=== PATIENT | female | born 1950 | race American Indian/Alaskan Native ===

== ENCOUNTER 2016-10-18 15:44 | Emergency (ER) | payer SELFPAY ==
[2016-10-18 15:54] VITALS: BMI 27.6
[2016-10-18] MEDS ORDERED: Sodium Chloride 0.9% 1,000 ML IV STA (16:03)
[2016-10-18 16:46] LABS: BASO # 0.01 K/mm3 (0.0-2.0); BASO % 0.2 % (0.0-3.0); EOS # 0.1 (0.0-0.7); EOS % 1.5 % (1.5-5.0); GRAN # 2.65 (1.4-6.5); GRAN % 40.4 % (50.0-68.0); HEMOGLOBIN 12.8 gm/dL (12.0-16.0); LYMPH # 3.2 (1.2-3.4); LYMPH % 48.9 % (22.0-35.0); MEAN CELL VOLUME 85.5 fL (80.0-105.0); MEAN CORPUSCULAR HEMOGLOBIN 28.6 pg (25.0-35.0); MEAN CORPUSCULAR HGB CONC 33.4 g/dl (31.0-37.0); MEAN PLATELET VOLUME 11.1 fl (7.0-11.0); MONO # 0.6 (0.1-0.6); PLATELET COUNT 201 10^3/uL (120.0-450.0); RBC 4.48 10^6/uL (3.5-6.1); WHITE BLOOD COUNT 6.6 10^3/ul (4.5-11.0)
[2016-10-18 17:06] LABS: ALB/GLOB RATIO 1.2 (1.1-1.8); ALBUMIN 4.3 g/dL (3.0-4.8); ALT/SGPT 45 U/L (7-56); AST/SGOT 37 U/L (15-39); BLOOD UREA NITROGEN 15 mg/dL (7-21); CALCIUM 9.2 mg/dL (8.4-10.5); GFR AFRICAN-AMERICAN > 60; GFR NON-AFRICAN AMERICAN 56; LIPASE 141 U/L (23-300)
[2016-10-18 17:46] LABS: URINE BILIRUBIN NEGATIVE (NEGATIVE); URINE BLOOD SMALL (NEGATIVE); URINE GLUCOSE (UA) NEGATIVE (NEGATIVE); URINE LEUKOCYTE ESTERASE TRACE Leu/uL (NEGATIVE); URINE NITRATE NEGATIVE (NEGATIVE); URINE PROTEIN NEGATIVE mg/dL (<30 mg/dL); URINE UROBILINOGEN 0.2 E.U./dL (<1 E.U./dL)
[2016-10-18 17:47] LABS: URINE APPEARANCE CLEAR (CLEAR); URINE COLOR YELLOW (YELLOW)
[2016-10-18] MEDS ORDERED: Iohexol 240 (50 ml) ONE (17:47)
[2016-10-18 17:56] LABS: URINE BACTERIA TRACE (NEG); URINE RBC 0 - 2 /hpf (0-2)
[2016-10-18 18:39] VITALS: TEMP 98.6
--- NOTE | 2016-10-18 19:05 | ED PDOC ---
Arrival/HPI - General Chief Complaint: Abdominal Pain Time Seen by Provider: 10/18/16 16:03 Historian: Patient - History of Present Illness Narrative History of Present Illness (Text): 10/18/16 19:08 A 66 year old female, whose past medical history includes peptic ulcer disease, presents to the emergency department complaining of abdominal pain increasing for the past 4 days. Patient notes one episode of vomiting yesterday. Also noticed two episodes of minimal streaked blood in stool. Patient took typical over the counter medication with no relief. Recently returned from [place] 4 months ago. Denies any nausea, dysuria, chest pain, shortness of breath, fever, diarrhea, constipation or any other complaints at this time. Time/Duration: Other (4 days) Symptom Onset: Sudden Symptom Course: Unchanged Activities at Onset: Rest Context: Home Past Medical History - Provider Review Nursing Documentation Reviewed: Yes - Infectious Disease Hx of Infectious Diseases: None - Hematological/Oncological Hx Blood Disorders: Yes Hx Hepatitis A: Yes - Gastrointestinal Hx Gastrointestinal Disorders: Yes Hx Gastritis: Yes - Psychiatric Hx Substance Use: No - Anesthesia Hx Anesthesia: No Hx Anesthesia Reactions: No Family/Social History - Physician Review Nursing Documentation Reviewed: Yes Family/Social History: No Known Family HX Smoking Status: Never Smoked Hx Alcohol Use: No Hx Substance Use: No Allergies/Home Meds Allergies/Adverse Reactions: Allergies No Known Allergies Allergy (Verified 10/18/16 15:54) Review of Systems - Physician Review All systems were reviewed & negative as marked: Yes - Review of Systems Constitutional: absent: Fevers Respiratory: absent: SOB Cardiovascular: absent: Chest Pain Gastrointestinal: Abdominal Pain, Vomiting, Hematochezia. absent: Constipation , Diarrhea, Nausea Genitourinary Female: absent: Dysuria Physical Exam Vital Signs Reviewed: Yes Vital Signs Temp Pulse Resp BP Pulse Ox 10/18/16 22:50 79 14 150/92 H 97 10/18/16 18:38 98.6 F 80 20 168/88 H 99 10/18/16 17:00 82 18 180/89 H 98 10/18/16 15:56 97.8 F 97 H 19 170/96 H 98 Temperature: Afebrile Blood Pressure: Hypertensive Pulse: Regular Respiratory Rate: Normal Appearance: Positive for: Well-Appearing, Non-Toxic, Comfortable Pain Distress: None Mental Status: Positive for: Alert and Oriented X 3 - Systems Exam Head: Present: Atraumatic, Normocephalic Pupils: Present: PERRL Extroacular Muscles: Present: EOMI Conjunctiva: Present: Normal Mouth: Present: Moist Mucous Membranes Neck: Present: Normal Range of Motion Respiratory/Chest: Present: Clear to Auscultation, Good Air Exchange. No: Respiratory Distress, Accessory Muscle Use Cardiovascular: Present: Regular Rate and Rhythm, Normal S1, S2. No: Murmurs Abdomen: Present: Tenderness (diffuse lower quadrants), Normal Bowel Sounds. No : Distention, Peritoneal Signs Back: Present: Normal Inspection. No: CVA Tenderness Upper Extremity: Present: Normal Inspection. No: Cyanosis, Edema Lower Extremity: Present: Normal Inspection. No: Edema Neurological: Present: GCS=15, CN II-XII Intact, Speech Normal Skin: Present: Warm, Dry, Normal Color. No: Rashes Psychiatric: Present: Alert, Oriented x 3, Normal Insight, Normal Concentration Medical Decision Making ED Course and Treatment: 10/18/16 19:01 Impression: A 66 year old female with abdominal pain. Plan: -- CT abd/pelvis -- labs -- Urinalysis -- Pepcid, IV fluids, Zofran -- Reassess and disposition Progress Notes: - Lab Interpretations Lab Results: 10/18/16 16:30 10/18/16 16:30 Lab Results 10/18/16 17:30: Urine Color Yellow, Urine Appearance Clear, Urine pH 7.0, Ur Specific [place] 1.015, Urine Protein Negative, Urine Glucose (UA) Negative, Urine Ketones Negative, Urine Blood Small H, Urine Nitrate Negative, Urine Bilirubin Negative, Urine Urobilinogen 0.2, Ur Leukocyte Esterase Trace H, Urine RBC 0 - 2, Urine WBC 1 - 3, Ur Epithelial Cells 4 - 5, Urine Bacteria Trace 10/18/16 16:30: Sodium 139, Potassium 4.3, Chloride 104, Carbon Dioxide 26, Anion Gap 13, BUN 15, Creatinine 1.0, Est GFR ( Amer) > 60, Est GFR (Non- Af Amer) 56, Random Glucose 96, Calcium 9.2, Total Bilirubin 0.3, AST 37, ALT 45 , Alkaline Phosphatase 72, Total Protein 8.0, Albumin 4.3, Globulin 3.6, Albumin /Globulin Ratio 1.2, Lipase 141 10/18/16 16:30: WBC 6.6, RBC 4.48, Hgb 12.8, Hct 38.3, MCV 85.5, MCH 28.6, MCHC 33.4, RDW 13.0, Plt Count 201, MPV 11.1 H, Gran % 40.4 L, Lymph % (Auto) 48.9 H , [place] % (Auto) 9.0 H, Eos % (Auto) 1.5, Baso % (Auto) 0.2, Gran # 2.65, Lymph # 3.2, [place] # 0.6, Eos # 0.1, Baso # 0.01 I have reviewed the lab results: Yes - RAD Interpretation Radiology Orders: 10/18/16 16:19 ABDOMEN & PELVIS [ABD PELVIS PO & IV CONTRAST] [CT] Stat - Medication Orders Current Medication Orders: Discontinued Medications Famotidine (Pepcid) 20 mg IVP STAT STA Stop: 10/18/16 16:04 Last Admin: 10/18/16 16:26 Dose: 20 mg Sodium Chloride (Sodium Chloride 0.9%) 1,000 mls @ 250 mls/hr IV .Q4H STA Stop: 10/18/16 20:02 Last Admin: 10/18/16 16:25 Dose: 250 mls/hr Iohexol (Omnipaque 240 (50 Ml)) Confirm Administered Dose 50 ml .ROUTE .STK-MED ONE Stop: 10/18/16 17:48 Iohexol (Omnipaque 350 150 Ml) Confirm Administered Dose 150 ml .ROUTE .STK-MED ONE Stop: 10/18/16 19:17 Ondansetron HCl (Zofran Inj) 4 mg IVP STAT STA Stop: 10/18/16 16:04 Last Admin: 10/18/16 16:25 Dose: 4 mg - Scribe Statement The provider has reviewed the documentation as recorded by the Jim Yan Provider Scribe Attestation: All medical record entries made by the Jim were at my direction and personally dictated by me. I have reviewed the chart and agree that the record accurately reflects my personal performance of the history, physical exam, medical decision making, and the department course for this patient. I have also personally directed, reviewed, and agree with the discharge instructions and disposition. Disposition/Present on Arrival - Present on Arrival Any Indicators Present on Arrival: No History of DVT/PE: No History of Uncontrolled Diabetes: No Urinary Catheter: No History of Decub. Ulcer: No History Surgical Site Infection Following: None - Disposition Have Diagnosis and Disposition been Completed?: Yes Diagnosis: Gastroenteritis Disposition: HOME/ ROUTINE Disposition Time: 19:00 Condition: GOOD Discharge Instructions (ExitCare): Gastroenteritis (ED) Additional Instructions: Drink frequent small amounts of liquids at a time/[place] diet next few days/meds as prescribed/follow up with the hat copyist this week /Any recurrent worsening symptoms return to the emergency room Prescriptions: Ondansetron [Zofran Odt] 4 mg PO Q6 PRN #12 odt PRN Reason: Nausea/Vomiting Pantoprazole Sodium [Protonix] 40 mg PO DAILY #21 ect Referrals: Sam Ruby MD [Staff Provider] - Follow up with primary
--- NOTE | 2016-10-18 19:57 | ED PDOC ---
Physical Exam Vital Signs Reviewed: Yes Vital Signs Temp Pulse Resp BP Pulse Ox 10/18/16 18:38 98.6 F 80 20 168/88 H 99 10/18/16 17:00 82 18 180/89 H 98 10/18/16 15:56 97.8 F 97 H 19 170/96 H 98 Temperature: Afebrile Blood Pressure: Hypertensive Pulse: Regular Respiratory Rate: Normal Appearance: Positive for: Well-Appearing, Non-Toxic, Comfortable Pain Distress: None Mental Status: Positive for: Alert and Oriented X 3 Medical Decision Making ED Course and Treatment: 10/18/16 19:55 Case endorsed to me from /Pending CT abd/pelvis./Labs were normal.Hx. of abdominal discomfort past few days with some diarrhea blood streaked at times.No hx. of any fever or chills. No N/V. CT Abdomen and Pelvis With Intravenous Contrast FINDINGS: Limitations: Motion artifact - mild to moderate. Lower thorax: Mild cardiomegaly. Minimal atelectasis. 0.3 cm LEFT lower lobe nodule. Probable small hiatal hernia. ABDOMEN: Liver: Unremarkable. No mass. Gallbladder and bile ducts: No calcified stones. No ductal dilation. Pancreas: No ductal dilation. No mass. Spleen: No splenomegaly. Adrenals: No mass. Kidneys and ureters: No mass. No hydronephrosis. Stomach and bowel: Segmental areas of underdistention of LEFT colon. No definite mural thickening. No obstruction. Appendix: Normal caliber. No inflammation. PELVIS: Bladder: Unremarkable. Reproductive: IUD. ABDOMEN and PELVIS: Intraperitoneal space: No significant fluid collection. No free air. Bones/joints: Mild degenerative changes of spine. No acute fracture. Soft tissues: Tiny umbilical hernia containing fat. Vasculature: Unremarkable. No aneurysm. Lymph nodes: No pathologically enlarged lymph nodes. IMPRESSION: 1. No definite acute intraabdominal abnormality. 2. Pulmonary nodules. For low-risk patients, no follow-up is necessary. For high -risk patients (smoking history or other known risk factors) recommend CT at 12 months and if unchanged, no further follow-up. 3. Incidental/non-acute findings are described above. Dictated and Authenticated by: Rick Edwards MD 10/18/2016 9:12 PM Eastern Time ([place] & [place]) 10/18/16 22:47 On reevaluation the patient feels better and is in no acute distress. I have discussed the results and plan with the patient, who expresses understanding. Patient given the opportunity to ask question, all questions were answered and there is agreement with the plan to discharge the patient home. Patient is stable for discharge. Patient was instructed to follow up with physician/clinic in 1-2 days or return if symptoms persist/worsen or new concerning symptoms arise. - Lab Interpretations Lab Results: 10/18/16 16:30 10/18/16 16:30 Lab Results 10/18/16 17:30: Urine Color Yellow, Urine Appearance Clear, Urine pH 7.0, Ur Specific [place] 1.015, Urine Protein Negative, Urine Glucose (UA) Negative, Urine Ketones Negative, Urine Blood Small H, Urine Nitrate Negative, Urine Bilirubin Negative, Urine Urobilinogen 0.2, Ur Leukocyte Esterase Trace H, Urine RBC 0 - 2, Urine WBC 1 - 3, Ur Epithelial Cells 4 - 5, Urine Bacteria Trace 10/18/16 16:30: Sodium 139, Potassium 4.3, Chloride 104, Carbon Dioxide 26, Anion Gap 13, BUN 15, Creatinine 1.0, Est GFR ( Amer) > 60, Est GFR (Non- Af Amer) 56, Random Glucose 96, Calcium 9.2, Total Bilirubin 0.3, AST 37, ALT 45 , Alkaline Phosphatase 72, Total Protein 8.0, Albumin 4.3, Globulin 3.6, Albumin /Globulin Ratio 1.2, Lipase 141 10/18/16 16:30: WBC 6.6, RBC 4.48, Hgb 12.8, Hct 38.3, MCV 85.5, MCH 28.6, MCHC 33.4, RDW 13.0, Plt Count 201, MPV 11.1 H, Gran % 40.4 L, Lymph % (Auto) 48.9 H , [place] % (Auto) 9.0 H, Eos % (Auto) 1.5, Baso % (Auto) 0.2, Gran # 2.65, Lymph # 3.2, [place] # 0.6, Eos # 0.1, Baso # 0.01 I have reviewed the lab results: Yes - RAD Interpretation Radiology Orders: 10/18/16 16:19 ABDOMEN & PELVIS [ABD PELVIS PO & IV CONTRAST] [CT] Stat - Medication Orders Current Medication Orders: Discontinued Medications Famotidine (Pepcid) 20 mg IVP STAT STA Stop: 10/18/16 16:04 Last Admin: 10/18/16 16:26 Dose: 20 mg Sodium Chloride (Sodium Chloride 0.9%) 1,000 mls @ 250 mls/hr IV .Q4H STA Stop: 10/18/16 20:02 Last Admin: 10/18/16 16:25 Dose: 250 mls/hr Iohexol (Omnipaque 240 (50 Ml)) Confirm Administered Dose 50 ml .ROUTE .STK-MED ONE Stop: 10/18/16 17:48 Iohexol (Omnipaque 350 150 Ml) Confirm Administered Dose 150 ml .ROUTE .STK-MED ONE Stop: 10/18/16 19:17 Ondansetron HCl (Zofran Inj) 4 mg IVP STAT STA Stop: 10/18/16 16:04 Last Admin: 10/18/16 16:25 Dose: 4 mg - Scribe Statement The provider has reviewed the documentation as recorded by the Jim Yan Provider Scribe Attestation: All medical record entries made by the Jim were at my direction and personally dictated by me. I have reviewed the chart and agree that the record accurately reflects my personal performance of the history, physical exam, medical decision making, and the department course for this patient. I have also personally directed, reviewed, and agree with the discharge instructions and disposition. Disposition/Present on Arrival - Present on Arrival Any Indicators Present on Arrival: No History of DVT/PE: No History of Uncontrolled Diabetes: No Urinary Catheter: No History of Decub. Ulcer: No History Surgical Site Infection Following: None - Disposition Have Diagnosis and Disposition been Completed?: Yes Diagnosis: Gastroenteritis Disposition: HOME/ ROUTINE Disposition Time: 22:41 Patient Plan: Discharge Patient Problems: Current Active Problems Problem Status Onset Gastroenteritis Acute Condition: GOOD Discharge Instructions (ExitCare): Gastroenteritis (ED) Additional Instructions: Drink frequent small amounts of liquids at a time/[place] diet next few days/meds as prescribed/follow up with the chief science officer this week /Any recurrent worsening symptoms return to the emergency room Prescriptions: Pantoprazole Sodium [Protonix] 40 mg PO DAILY #21 ect Ondansetron [Zofran Odt] 4 mg PO Q6 PRN #12 odt PRN Reason: Nausea/Vomiting Referrals: Sam Ruby MD [Staff Provider] - Follow up with primary
--- NOTE | 2016-10-18 21:13 | CT ---
EXAM: CT Abdomen and Pelvis With Intravenous Contrast CLINICAL HISTORY: 66 years old, female; Pain; Abdominal pain; Generalized; Patient HX: Lt sided abdominal pain; Additional info: Left-sided abdominal pain TECHNIQUE: Axial computed tomography images of the abdomen and pelvis with intravenous contrast. This CT exam was performed using one or more of the following dose reduction techniques: automated exposure control, adjustment of the mA and/or kV according to patient size, and/or use of iterative reconstruction technique. Coronal and sagittal reformatted images were created and reviewed. CONTRAST: 145 mL of OMNI 350 administered intravenously. COMPARISON: No relevant prior studies available. FINDINGS: Limitations: Motion artifact - mild to moderate. Lower thorax: Mild cardiomegaly. Minimal atelectasis. 0.3 cm LEFT lower lobe nodule. Probable small hiatal hernia. ABDOMEN: Liver: Unremarkable. No mass. Gallbladder and bile ducts: No calcified stones. No ductal dilation. Pancreas: No ductal dilation. No mass. Spleen: No splenomegaly. Adrenals: No mass. Kidneys and ureters: No mass. No hydronephrosis. Stomach and bowel: Segmental areas of underdistention of LEFT colon. No definite mural thickening. No obstruction. Appendix: Normal caliber. No inflammation. PELVIS: Bladder: Unremarkable. Reproductive: IUD. ABDOMEN and PELVIS: Intraperitoneal space: No significant fluid collection. No free air. Bones/joints: Mild degenerative changes of spine. No acute fracture. Soft tissues: Tiny umbilical hernia containing fat. Vasculature: Unremarkable. No aneurysm. Lymph nodes: No pathologically enlarged lymph nodes. IMPRESSION: 1. No definite acute intraabdominal abnormality. 2. Pulmonary nodules. For low-risk patients, no follow-up is necessary. For high-risk patients (smoking history or other known risk factors) recommend CT at 12 months and if unchanged, no further follow-up. 3. Incidental/non-acute findings are described above.
[2016-10-18 22:57] VITALS: BP 150/92; PULSE 79; RESP 14; O2SAT 97
== END 2016-10-18 22:54 | disposition home or self-care (01) ==
LOC: ED 15:44
DX: K52.9 Noninfective gastroenteritis and colitis, unspecified (principal)
CPT/HCPCS: 74177; 80053; 81001; 83690; 85025; 87086; 96374; 96375; 99285; J2405; J7040; Q9966; Q9967